=== PATIENT | female | born 2000 | race Caucasian/White ===

== ENCOUNTER 2022-05-19 17:55 | Emergency (ER) | payer SELFPAY ==
[~2022-05-19] VITALS: Ht 157.5 cm; Wt 67.3 kg
[2022-05-19 17:55] VITALS: BP 116/56
[2022-05-19] MEDS ORDERED: VIEN1TAB PO (18:00)
== END 2022-05-19 20:00 | disposition left against medical advice (07) ==
LOC: M ED 17:55
DX: Z53.21 Procedure and treatment not carried out due to patient leaving prior to being seen by health care provider (principal)